=== PATIENT | male | born 1955 | race Asian ===

== ENCOUNTER 2018-10-10 23:35 | Emergency (ER) | payer BC, OTHER ==
[~2018-10-10] VITALS: Ht 165.1 cm; Wt 74.8 kg
[2018-10-10 23:50] VITALS: BP_SYST 145
--- NOTE | 2018-10-10 23:50 | NUR ---
Placed in room 3. Placed on bank manager, blood pressure machine and pulse oximeter. To gown for exam. Side rails up.
--- NOTE | 2018-10-10 23:55 | NUR ---
Pt C/O shortness of breath x 1 day and cough x 1 week. Pt able to talk in complete sentences. Denies fever, smoking or any other symptoms at this time. Will continue to monitor.
[2018-10-10] MEDS ORDERED: NIFE-2 PO (23:58)
[2018-10-10] MEDS ORDERED: LIP20 PO (23:58)
[2018-10-10] MEDS ORDERED: FINA5TAB3 PO (23:59)
[2018-10-10] MEDS ORDERED: LOSA100T3 PO (23:59)
[2018-10-10] MEDS ORDERED: ASPI-1155 PO (23:59)
[2018-10-11] MEDS ORDERED: TAMS-11 PO
--- NOTE | 2018-10-11 00:03 | NUR ---
ER Dr. Tatum at bedside examining patient.
[2018-10-11] MEDS ORDERED: IPRATROPIUM/ALBUTEROL SULFATE 3 ML AMPUL.NEB (DUONEB) INH ONE ×2 (00:15→01:00)
--- NOTE | 2018-10-11 00:23 | NUR ---
PHOTOGRAPHY SPOTTER at bedside for breathing treatment
[2018-10-11] MEDS ORDERED: methylPREDNISolone SOD SUCC/PF 62.5 MG/ML VIAL IM ONE (01:00)
[2018-10-11] MEDS ORDERED: AZITHROMYCIN 250 MG TABLET PO ONE (01:00)
--- NOTE | 2018-10-11 01:05 | NUR ---
BASIN CLEANER at bedside for 2nd breathing treatment
--- NOTE | 2018-10-11 01:57 | NUR ---
Patient given written and verbal discharge instructions and verbalizes understanding. ER MD discussed with patient the results and treatment provided. Patient in stable condition. ID arm band removed. Rx of Albuterol, Azithromycin, and Prednisone given. Patient educated on pain management and to follow up with PMD. Pain Scale 0. Opportunity for questions provided and answered. Medication side effect fact sheet provided.
[2018-10-11 02:00] VITALS: BP_SYST 145
== END 2018-10-11 01:57 | disposition home or self-care (01) ==
LOC: SED 23:35
DX: J20.9 Acute bronchitis, unspecified (principal); Z79.82 Long term (current) use of aspirin; Z79.899 Other long term (current) drug therapy
CPT/HCPCS: 71045; 94640; 96372; 99284; J2930; J7620; Q0144

== ENCOUNTER 2022-04-20 20:25 | Emergency (ER) | payer OTHER, MEDICARE ==
[~2022-04-20] VITALS: Ht 165.1 cm; Wt 77.1 kg
[~2022-04-20 20:25] MED LIST: ASPI-1155 PO; FINA5TAB3 PO; LIP20 PO; LOSA100T3 PO; NIFE-55 PO; TAMS-11 PO
[2022-04-20 20:31] VITALS: BP_SYST 171
[2022-04-21] MEDS: IPRATROPIUM/ALBUTEROL SULFATE 3 ML AMPUL.NEB (DUONEB) INH ONE (00:35)
[2022-04-21 00:39] LABS: BASOPHILS # (AUTO) 0.1 K/uL (0.0-0.2); BASOPHILS % (AUTO) 0.8 % (0.0-2.0); EOSINOPHILS # (AUTO) 0.5 K/uL (0.0-0.4); EOSINOPHILS % (AUTO) 7.5 % (0.0-4.0); HEMOGLOBIN 11.4 g/dL (14.0-18.0); LYMPHOCYTES # (AUTO) 1.7 K/uL (1.0-5.5); LYMPHOCYTES % (AUTO) 23.6 % (20.5-51.5); MEAN CORPUSCULAR HEMOGLOBIN 20 pg (27-31); MEAN CORPUSCULAR HGB CONC 32 % (32-36); MEAN CORPUSCULAR VOLUME 63 fL (79.0-98.0); MONOCYTES # (AUTO) 0.8 K/uL (0.0-1.0); NEUTROPHILS # (AUTO) 4.1 K/uL (1.8-7.7); NEUTROPHILS % (AUTO) 57.1 % (40.0-70.0); PLATELET COUNT (AUTO) 232 K/uL (130-430); RED BLOOD CELL COUNT(AUTO) 5.76 MIL/uL (4.2-6.2); RED CELL DISTRIBUTION WIDTH 16.3 % (9.0-15.0); WHITE BLOOD COUNT (AUTO) 7.1 K/uL (4.8-10.8)
[2022-04-21 01:03] LABS: ANION GAP 8 (5-15); CHLORIDE 103 mmol/L (98-107); CREATININE 1.62 mg/dL (0.55-1.30); GLUCOSE 115 mg/dL (70-99); UREA NITROGEN, BLOOD 23 mg/dL (8-21)
[2022-04-21 01:10] LABS: GFR AFRICAN AMERICAN 55 mL/min (>90)
[2022-04-21 01:12] LABS: ALANINE AMINOTRANSFERASE 41 U/L (12-78); ALBUMIN 4.2 g/dL (3.4-4.8); ASPARTATE AMINOTRANSFERASE 30 U/L (10-37); TOTAL BILIRUBIN 0.7 mg/dL (0.0-1.0)
[2022-04-21] MEDS ORDERED: ALBMDI INH (02:31)
[2022-04-21] MEDS ORDERED: PRED20TA PO (02:31)
[2022-04-21] MEDS ORDERED: ZIT250 PO (02:31)
[2022-04-21] MEDS: DEXAMETHASONE SOD PHOSPHATE 10 MG/ML VIAL IVP ONE (02:34)
[2022-04-21] MEDS: MAGNESIUM SULFATE 1 GM/2 ML VIAL IVP ONE (02:34)
[2022-04-21 03:05] VITALS: BP_SYST 138
== END 2022-04-21 03:05 | disposition home or self-care (01) ==
LOC: SED 20:25
DX: J18.9 Pneumonia, unspecified organism (principal); I10 Essential (primary) hypertension; Z79.899 Other long term (current) drug therapy; Z20.822 Contact with and (suspected) exposure to COVID-19
CPT/HCPCS: 36415; 71045; 80053; 83880; 84484; 85025; 93005; 94640; 96374; 99285; J1100